=== PATIENT | male | born 1940 ===

== ENCOUNTER → 2017-08-30 | Emergency (ER) | payer OTHER ==
[~2017-08-30] VITALS: Ht 177.8 cm; Wt 90.7 kg
[~2017-08-30] MED LIST: ASA325 M1; ATENOLOL25 MG; COMADIN; PNEU16DI2
== END | disposition home or self-care (01) ==
LOC: ER 15:42
DX: S01.02XA Laceration with foreign body of scalp, initial encounter (principal); S19.9XXA Unspecified injury of neck, initial encounter; W18.31XA Fall on same level due to stepping on an object, initial encounter; Y93.89 Activity, other specified; Y92.018 Other place in single-family (private) house as the place of occurrence of the external cause; Y99.8 Other external cause status